=== PATIENT | male | born 1990 | race Caucasian/White ===

== ENCOUNTER 2024-04-25 02:52 | Inpatient (IN) | payer BC, SELFPAY ==
[2024-04-25] MEDS ORDERED: Boostrix 0.5 ML (Tdap) VIAL (>/=7 yrs of age) ONE (03:02)
[2024-04-25] MEDS ORDERED: CEFAZOLIN 2 GM VIAL ONE (03:02)
[2024-04-25] MEDS ORDERED: Sodium Chloride 0.9% 100 ML ONE (03:03)
[2024-04-25 03:32] LABS: #Basophils 0.07 10x3/uL (0.0-0.2); %Basophils 0.5 % (0.0-1.0); %Eosinophils 1.2 % (0.0-10.0); %Lymphocytes 40.8 % (21.0-51.0); %Monocytes 4.4 % (0.0-10.0); Hemoglobin 11.8 g/dL (14.0-18.0); INR-International Normal Ratio 1.3; Mean Corpuscular HGB CONC 32.8 g/dL (32.0-36.0); Mean Corpuscular Hemoglobin 29.3 pg (27.0-31.0); Mean Corpuscular Volume 89.3 fL (78.0-98.0); Mean Platelet Volume 9.8 fL (7.4-10.4); PTT 24.5 sec (22.9-36.1); Platelet Count 353 10x3/uL (130-400); Prothrombin Time 15.7 sec (12.0-14.7); RBC Distribution Width 11.5 % (11.5-14.5); Red Blood Cell (RBC) Count 4.03 mill/uL (4.70-6.10)
[2024-04-25] MEDS ORDERED: fentaNYL 50 mcg/mL 1 mL Vial ONE (03:34)
[2024-04-25] MEDS ORDERED: Ipratropium/Albuterol 3 ML NEB NEB PRN (03:40)
[2024-04-25] MEDS ORDERED: hydrALAZINE 20 MG/ML VIAL SLOW IVP PRN (03:40)
[2024-04-25 03:45] LABS: Bacteria/HPF None Seen HPF (None Seen); Bilirubin Negative (Negative); Blood, Urine 1+ (Negative); CAUTI Indications for Culture Alt mental st,lethar; Clarity Clear (Clear); Glucose, Urine (Dipstick) 150 mg/dL (Negative); Ketone, Urine Negative (Negative); Leukocyte Negative Leu/uL (Negative); Nitrite Negative (Negative); Protein, Urine (Dipstick) 10 mg/dL (Neg-Trace); RBC/HPF 0-3 HPF (0-3); Specific Gravity, Urine 1.007 (1.002-1.036); Squamous Epithelial 0-3 HPF (0-3); Urobilinogen Normal mg/dL (Less than 2); WBC/HPF 0-3 HPF (0-3)
[2024-04-25] MEDS ORDERED: Ketorolac Tromethamine 30 MG (1 mL) VIAL IVP PRN (03:45)
[2024-04-25] MEDS ORDERED: Ventilator Sedation Protocol 1 EACH FS SCH (03:45)
[2024-04-25] MEDS ORDERED: Fentanyl CADD 100 ML IV SCH ×2 (03:45→04:30)
[2024-04-25 03:46] LABS: Urine Culture Reflex No No
[2024-04-25] MEDS ORDERED: Lidocaine 1% w/Epinephrine 1:100K 20 ML VIAL ONE (03:50)
[2024-04-25 03:52] LABS: Alcohol Less than 10.0 mg/dL (Less than 10)
[2024-04-25 03:52] LABS: Amphetamine Not Detected (NotDetected); Barbiturates Screen Not Detected (NotDetected); Benzodiazepine Screen Not Detected (NotDetected); Cocaine Metabolite Screen Not Detected (NotDetected); Methadone Not Detected (NotDetected); Methamphetamine Not Detected (NotDetected); Opiate Screen Not Detected (NotDetected); Oxycodone Screen Not Detected (NotDetected); Phencyclidine (PCP) Not Detected (NotDetected); THC/Cannabinoid Screen Detected (NotDetected); Tricyclic Screen Not Detected (NotDetected)
[2024-04-25 03:55] LABS: ALT (SGPT) 12 U/L (8-55); AST (SGOT) 21 U/L (5-34); Albumin 3.6 g/dL (3.5-5.0); Alkaline Phosphatase 65 U/L (40-110); Anion Gap 20 mmol/L (10-20); BUN (Urea Nitrogen) 15 mg/dL (8.9-20.6); Bilirubin, Total 0.3 mg/dL (0.2-1.2); Calc. Creatinine Clearance 0 mL/min (70-130); Calcium 7.8 mg/dL (7.8-10.44); Carbon Dioxide 14 mmol/L (22-29); Chloride 108 mmol/L (98-107); Estimated GFR 73; Globulin 2.3 g/dL (2.4-3.5); Glucose 329 mg/dL (70-105); Lipase 26 U/L (8-78); Potassium 3.1 mmol/L (3.5-5.1); Protein, Total 5.9 g/dL (6.0-8.3); Sodium 139 mmol/L (136-145)
[2024-04-25] MEDS ORDERED: Propofol BOLUS 1,000 MG/100 ML VIAL IV PRN (04:30)
[2024-04-25] MEDS ORDERED: Morphine 2 MG/ML VIAL SLOW IVP PRN (04:30)
[2024-04-25] MEDS ORDERED: Propofol 1,000 MG/100 ML VIAL IV PRN (04:30)
[2024-04-25] MEDS ORDERED: DISCONTINUE PREVIOUS NARCOTIC PAIN MEDICATIONS AND BENZODIAZEPINES FS SCH (04:30)
[2024-04-25] MEDS ORDERED: Lorazepam 2 MG/ML VIAL SLOW IVP PRN (04:30)
[2024-04-25] MEDS ORDERED: Fentanyl BOLUS 250 ML IVPB PRN (04:30)
[2024-04-25 04:31] LABS: Troponin I Less than 0.010 ng/mL (< 0.028)
[2024-04-25] MEDS ORDERED: levETIRAcetam 500 MG (5 mL) VIAL ONE (05:05)
[2024-04-25 06:19] VITALS: BMI 25.2
[2024-04-25] MEDS: TETANUS, DIPHTHERIA TOX,ADULT (TDVAX) 0.5 ML VIAL IM ONE (06:20)
[2024-04-25] MEDS: Lactated Ringer's 1,000 ML IV SCH (06:22)
[2024-04-25 07:27] LABS: Lactic Acid 1.78 mmol/L (0.5-2.2)
[2024-04-25] MEDS: Ondansetron PF 4 MG/2 ML Vial IVP PRN ×2 (09:10→14:14)
[2024-04-25] MEDS: DC Sedation Protocol FS ONE (11:22)
[2024-04-25] MEDS: Ibuprofen 600 MG TAB PO PRN (18:16)
[2024-04-25] MEDS: Enoxaparin 40 MG (0.4 mL) SYRINGE SC SCH (20:23)
[2024-04-25] MEDS: Divalproex Sodium DR 500 MG TAB PO SCH (20:23)
[2024-04-26 07:34] VITALS: TEMP 98.2
[2024-04-26] MEDS: Polyethylene Glycol 3350 17 GM Packet PO SCH (08:58)
[2024-04-26] MEDS: Acetaminophen 500 MG TAB PO PRN (10:23)
[2024-04-26] MEDS ORDERED: Bacitracin 1 PK TOP PRN (11:44)
[2024-04-26] MEDS ORDERED: Phenytoin 1,000 MG in Sodium Chloride 0.9% 100 ML IVPB SCH (13:45)
[2024-04-26 15:49] VITALS: BP 130/72
[2024-04-26] MEDS ORDERED: Phenytoin Extended Release 100 MG CAP PO SCH (21:00)
== END 2024-04-26 17:50 | disposition home or self-care (01) | DRG 40 ==
LOC: EDBD 02:52 → ERS 02:52 → ERHOLD 03:24 → CCU 08:17 → SURG B 15:16
PROVIDERS: ADMIT Specialist; ATTEND Specialist
PROC: 0JQ00ZZ Repair Scalp Subcutaneous Tissue and Fascia, Open Approach (ICD-10-PCS; principal; 2024-04-25)
PROC: 0BH17EZ Insertion of Endotracheal Airway into Trachea, Via Natural or Artificial Opening (ICD-10-PCS; 2024-04-25)
PROC: 5A1935Z Respiratory Ventilation, Less than 24 Consecutive Hours (ICD-10-PCS; 2024-04-25)
DX: S06.0XAA Concussion with loss of consciousness status unknown, initial encounter (principal); J96.00 Acute respiratory failure, unspecified whether with hypoxia or hypercapnia; E87.20 Acidosis, unspecified; N17.9 Acute kidney failure, unspecified; S27.322A Contusion of lung, bilateral, initial encounter; S01.02XA Laceration with foreign body of scalp, initial encounter; G40.909 Epilepsy, unspecified, not intractable, without status epilepticus; R40.2432 Glasgow coma scale score 3-8, at arrival to emergency department; V48.5XXA Car driver injured in noncollision transport accident in traffic accident, initial encounter; Y93.89 Activity, other specified; Y92.89 Other specified places as the place of occurrence of the external cause; Z87.820 Personal history of traumatic brain injury; Z90.49 Acquired absence of other specified parts of digestive tract; Z79.899 Other long term (current) drug therapy; Z91.011 Allergy to milk products
CPT/HCPCS: 36415; 70450; 70486; 71045; 71260; 72125; 74177; 80053; 80306; 80307; 81001; 83605; 83690; 84146; 84484; 85025; 85610; 85730; 86850; 86900; 86901; 90715; 93005; 94002; 94760; G0390; J1650; J1953; J2405; J3010; J7120; Q2009